=== PATIENT | male | born 2000 | race Caucasian/White ===

== ENCOUNTER 2021-02-05 15:04 | Emergency (ER) | payer OTHER ==
[~2021-02-05] VITALS: Ht 188 cm; Wt 81.1 kg
[2021-02-05 15:05] VITALS: BP 134/66
--- NOTE | 2021-02-05 17:28 | REP ---
INDICATION: L testicular pain, known cyst. COMPARISON: None. TECHNIQUE: High-resolution bilateral scrotal sonography. With Doppler interrogation. FINDINGS: Testicular parenchyma is normal and homogeneous. No intratesticular mass lesion is seen on either side. There are some a few microcalcifications in in the upper pole the right testis. This is not felt to be significant. There is a small left-sided hydrocele noted. Testicular Doppler flow is preserved bilaterally. Right resistive index is 0.57 and that in the left 0.58. Right testicular dimensions are 4.8 x 2.5 x 3.1 cm. Left testis measures 4.9 x 2.5 x 2.8 cm. There are very small bilateral epididymal cysts. The largest is on the left measuring 0.6 cm. IMPRESSION: Small left-sided hydrocele. Cyst 0.6 cm left epididymal cyst. Otherwise negative bilateral scrotal sonography. <Electronically signed by Jose Valverde > 02/05/21 [id number]
--- NOTE | 2021-02-08 09:52 | ED PDOC ---
Post-Departure Follow-Up ft ronan fp faxed formal report of scrotal us for fu Oni Escalante MD Feb 08, 2021 09:52
== END 2021-02-05 18:19 | disposition home or self-care (01) ==
LOC: M ED 15:04
DX: N43.3 Hydrocele, unspecified (principal); L72.0 Epidermal cyst; Z77.098 Contact with and (suspected) exposure to other hazardous, chiefly nonmedicinal, chemicals

== ENCOUNTER → 2021-04-14 | Outpatient (CLI) | payer OTHER ==
[2021-04-14 14:00] LABS: APPEARANCE, URINE CLEAR (CLEAR); BACTERIA, URINE AUTO NEGATIVE (NEGATIVE); BILIRUBIN, URINE AUTO NEGATIVE (NEGATIVE); BLOOD, URINE BLOOD NEGATIVE (NEGATIVE); COLOR, URINE YELLOW (YELLOW); GLUCOSE, URINE (UA) AUTO NEGATIVE (NEGATIVE); KETONE, URINE AUTO NEGATIVE (NEGATIVE); LEUKOCYTE ESTERASE, URINE AUTO NEGATIVE (NEGATIVE); MUCUS, URINE SMALL (NEGATIVE); NITRITE, URINE AUTO NEGATIVE (NEGATIVE); PROTEIN, URINE AUTO NEGATIVE (NEGATIVE); RBC, URINE AUTO 1 /HPF (0-3); SPECIFIC GRAVITY URINE AUTO 1.025 (1.002-1.035); SQUAMOUS EPITHELIAL CELL UR AU 0 /HPF (0-6); UROBILINOGEN, URINE AUTO 0.2 mg/dL (0.0-2.0); WBC, URINE AUTO 1 /HPF (0-3)
[2021-04-14 14:05] LABS: BLOOD UREA NITROGEN 20 MG/DL (7-18); CALCIUM LEVEL 9.9 MG/DL (8.5-10.1); CARBON DIOXIDE LEVEL 29 MEQ/L (21-32); CHLORIDE LEVEL 105 MEQ/L (98-107); CREATININE FOR GFR 0.88 MG/DL (0.70-1.30); GLUCOSE, FASTING 98 MG/DL (70-100); POTASSIUM SERUM 4.4 MEQ/L (3.5-5.1); SODIUM LEVEL 140 MEQ/L (136-145)
== END ==
LOC: M PLALAB 10:31
PROVIDERS: ATTEND Urology
DX: R10.32 Left lower quadrant pain (principal)
CPT/HCPCS: 36415; 80048; 81001; G0463

== ENCOUNTER → 2021-04-19 | Outpatient (CLI) | payer OTHER ==
[~2021-04-19] MED LIST: ISOVUE-370 76% 100ML VIAL As Ordered ONE
--- NOTE | 2021-04-19 18:16 | REP ---
INDICATION: GROIN PAIN. COMPARISON: None. TECHNIQUE: Axial contrast-enhanced images of the pelvis with coronal and sagittal reformations using 100 cc Isovue 370 intravenous contrast material. This CT examination was performed using the following dose reduction techniques: Automated exposure control, adjustment of mA and/or kv according to the patient's size, and use of iterative reconstruction technique. FINDINGS: Visualized portions of the small and large bowel are unremarkable. Normal terminal ileum, cecum and appendix identified in the right lower quadrant. Rectosigmoid appears normal with few scattered diverticula noted, but no evidence for acute diverticulitis. Bladder is normal. Prostate gland is age-appropriate and unremarkable. No ascites. No free air. No adenopathy. Vascular structures are symmetric and normal. No evidence for hernia. Surrounding musculoskeletal structures are intact. IMPRESSION: Normal contrast-enhanced CT of the pelvis. <Electronically signed by Shola Pinon > 04/19/21 [id number]
== END ==
LOC: M RAD 17:34
PROVIDERS: ATTEND Urology
DX: R10.32 Left lower quadrant pain (principal)
CPT/HCPCS: 72193; Q9967

== ENCOUNTER → 2021-09-09 | Outpatient (REF) | payer OTHER ==
[2021-09-09 19:24] LABS: APPEARANCE, URINE CLOUDY (CLEAR); BACTERIA, URINE AUTO NEGATIVE (NEGATIVE); BILIRUBIN, URINE AUTO NEGATIVE (NEGATIVE); BLOOD, URINE BLOOD NEGATIVE (NEGATIVE); COLOR, URINE YELLOW (YELLOW); GLUCOSE, URINE (UA) AUTO NEGATIVE (NEGATIVE); KETONE, URINE AUTO NEGATIVE (NEGATIVE); LEUKOCYTE ESTERASE, URINE AUTO NEGATIVE (NEGATIVE); NITRITE, URINE AUTO NEGATIVE (NEGATIVE); PROTEIN, URINE AUTO 1+ mg/dL (NEGATIVE); RBC, URINE AUTO 0 /HPF (0-3); SPECIFIC GRAVITY URINE AUTO 1.027 (1.002-1.035); SQUAMOUS EPITHELIAL CELL UR AU 0 /HPF (0-6); WBC, URINE AUTO 0 /HPF (0-3)
== END ==
LOC: M SMT 16:57
PROVIDERS: ATTEND Urology
DX: N50.82 Scrotal pain (principal)

== ENCOUNTER → 2021-09-17 | Outpatient (CLI) | payer OTHER ==
[~2021-09-17] MED LIST changes: -ISOVUE-370 76% 100ML VIAL As Ordered ONE; +ISOVUE-370 76% 100ML VIAL ONE
== END ==
LOC: M PLAIMG 10:21
PROVIDERS: ATTEND Urology
DX: N50.82 Scrotal pain (principal)
CPT/HCPCS: 72133; Q9967

== ENCOUNTER 2022-05-10 03:31 | Emergency (ER) | payer OTHER ==
[~2022-05-10] VITALS: Ht 185.4 cm; Wt 84.0 kg
[2022-05-10 06:17] LABS: GC DNA AMPLIFICATION NEGATIVE (NEGATIVE)
[2022-05-10] MEDS ORDERED: DOXYCYCLINE HYCLATE 100MG TABLET PO ONE (07:00)
[2022-05-10] MEDS ORDERED: DOXY-443 PO ×2 (07:09→07:13)
[2022-05-10 07:12] VITALS: BP 128/81
== END 2022-05-10 07:19 | disposition home or self-care (01) ==
LOC: M ED 03:31
DX: Z20.2 Contact with and (suspected) exposure to infections with a predominantly sexual mode of transmission (principal); R36.9 Urethral discharge, unspecified; Z79.899 Other long term (current) drug therapy

== ENCOUNTER → 2023-02-13 | Outpatient (CLI) | payer OTHER ==
[~2023-02-13] MED LIST changes: +DOXY-443 PO; -ISOVUE-370 76% 100ML VIAL ONE
== END ==
LOC: M PLAIMG 09:13
PROVIDERS: ATTEND Physician Assistant
DX: R10.9 Unspecified abdominal pain (principal); K59.00 Constipation, unspecified